=== PATIENT | female | born 1990 | race Caucasian/White ===

== ENCOUNTER 2018-09-24 15:18 | Emergency (ER) | payer OTHER ==
[2018-09-24 15:59] VITALS: BP 136/71
--- NOTE | 2018-09-24 16:14 | ED ---
Throat Pain/Nasal Congestion - HPI Summary HPI Summary: 28 yr old female with two weeks of waxing and waning sinus symptoms of congestion, post nasal drip, cough, ear pressure. Worsening symptoms over the past two days. No fever or chills. No SOB. - History of Current Complaint Chief Complaint: UCGeneralIllness Time Seen by Provider: 09/24/18 16:04 - Allergies/Home Medications Allergies/Adverse Reactions: Allergies Allergy/AdvReac Type Severity Reaction Status Date / Time Penicillins AdvReac Intermediate Itching Verified 09/24/18 16:00 contrast dye AdvReac Headache Uncoded 09/24/18 16:00 Home Medications: Home Medications Cholecalciferol CAP/TAB(NF) [Vitamin D3 CAP/TAB (NF)] 5,000 unit PO DAILY [History Confirmed 09/24/18] FLUoxetine* [PROzac*] 20 mg PO DAILY 09/24/18 [History Confirmed 09/24/18] Levothyroxine TAB* [Synthroid TAB*] 175 mcg PO 0600 09/24/18 [History Confirmed 09/24/18] PMH/Surg Hx/FS Hx/Imm Hx Respiratory History: Reports: Hx Asthma - Cancer History Cancer Type, Location and Year: Thyroid CA - Surgical History Surgery Procedure, Year, and Place: Thyroidectomy Infectious Disease History: No Infectious Disease History: Denies: Traveled Outside the [place] in Last 30 Days - Social History Alcohol Use: Rare Substance Use Type: Reports: None Smoking Status (MU): Never Smoked Tobacco Review of Systems Constitutional: Negative Positive: Nasal Discharge, Other - sinus pressure All Other Systems Reviewed And Are Negative: Yes Physical Exam Triage Information Reviewed: Yes Vital Signs On Initial Exam: Initial Vitals Temp Pulse Resp BP Pulse Ox 97.5 F 97 18 136/71 99 09/24/18 15:53 09/24/18 15:53 09/24/18 15:53 09/24/18 15:53 09/24/18 15:53 Vital Signs Reviewed: Yes Appearance: Positive: Well-Appearing, No Pain Distress Skin: Positive: Warm, Skin Color Reflects Adequate Perfusion Head/Face: Positive: Normal Head/Face Inspection Eyes: Positive: EOMI ENT: Positive: Pharynx normal, Nasal congestion, Nasal drainage, TM red - right with retracted ear drum, Sinus tenderness - bilateral frontal. Negative: Muffled voice, Hoarse voice Neck: Positive: Nontender Respiratory/Lung Sounds: Positive: Clear to Auscultation, Breath Sounds Present Cardiovascular: Positive: RRR. Negative: Murmur Abdomen Description: Negative: Distended Musculoskeletal: Positive: Strength/ROM Intact Neurological: Positive: Sensory/Motor Intact, Alert, Oriented to Person Place, Time, CN Intact II-III Psychiatric: Positive: Normal - [place] Coma Scale Best Eye Response: 4 - Spontaneous Best Motor Response: 6 - Obeys Commands Best Verbal Response: 5 - Oriented Coma Scale Total: 15 Diagnostics - Vital Signs Vital Signs Temp Pulse Resp BP Pulse Ox 09/24/18 15:53 97.5 F 97 18 136/71 99 - Laboratory Lab Statement: Any lab studies that have been ordered have been reviewed, and results considered in the medical decision making process. EENT Course/Dx - Course Course Of Treatment: 28 yr old with sinusitis, and right OM. Rx Biaxin. - Diagnoses Provider Diagnoses: Sinusitis, Otitis media Discharge - Sign-Out/Discharge Documenting (check all that apply): Patient Departure All imaging exams completed and their final reports reviewed: No Studies - Discharge Plan Condition: Good Disposition: HOME Prescriptions: Clarithromycin TAB* [Biaxin 500 MG TAB*] 500 mg PO BID #20 tab Patient Education Materials: Sinusitis (ED), Ear Infection (ED) Referrals: Gwendolyn Schmidt [Primary Care Provider] - 2 Days - Billing Disposition and Condition Condition: GOOD Disposition: Home
== END 2018-09-24 16:18 | disposition home or self-care (01) ==
LOC: UCCORT 15:18
DX: J01.90 Acute sinusitis, unspecified (principal); H66.91 Otitis media, unspecified, right ear; Z88.0 Allergy status to penicillin; Z91.02 Food additives allergy status
CPT/HCPCS: 99212; G0463

== ENCOUNTER 2018-10-24 12:44 | Emergency (ER) | payer OTHER ==
[2018-10-24 13:17] VITALS: BP 124/92
--- NOTE | 2018-10-24 13:49 | ED ---
Back Pain - HPI Summary HPI Summary: 28 yr old female with the complaint of low back pain that radiates into her buttock area, and also associated with feeling like her left leg is dragging and alteration in feeling of sensation in both thighs. Denies bowel or bladder incontinence. She has a history of thyroid cancer/ thyroid removal. She has not had any urinary symptoms at all, though has had UTI without any symptoms. Pain in her back is worse than prior episodes of back pain which she has experienced since having a tailbone fracture as a child. - History of Current Complaint Chief Complaint: UCBackPain Stated Complaint: BACK PAIN Time Seen by Provider: 10/24/18 13:30 Hx Last Menstrual Period: depoprovera Pain Intensity: 9 - Allergies/Home Medications Allergies/Adverse Reactions: Allergies Allergy/AdvReac Type Severity Reaction Status Date / Time Penicillins AdvReac Intermediate Itching Verified 10/24/18 13:17 contrast dye AdvReac Headache Uncoded 10/24/18 13:17 Home Medications: Home Medications FLUoxetine CAP* [PROzac CAP*] 20 mg PO DAILY 10/24/18 [History Confirmed ] PMH/Surg Hx/FS Hx/Imm Hx Respiratory History: Reports: Hx Asthma - Cancer History Cancer Type, Location and Year: Thyroid CA - Surgical History Surgery Procedure, Year, and Place: Thyroidectomy Infectious Disease History: No Infectious Disease History: Denies: Traveled Outside the [place] in Last 30 Days - Family History Family History: cancer - Social History Alcohol Use: Rare Substance Use Type: Reports: None Smoking Status (MU): Never Smoked Tobacco Review of Systems Constitutional: Negative Positive: Other - back pain Positive: Weakness - left leg drag, and feeling of altered sensation in the thighs. All Other Systems Reviewed And Are Negative: Yes Physical Exam Triage Information Reviewed: Yes Vital Signs On Initial Exam: Initial Vitals Temp Pulse Resp BP Pulse Ox 98.1 F 87 18 124/92 99 10/24/18 13:14 10/24/18 13:14 10/24/18 13:14 10/24/18 13:14 10/24/18 13:14 Vital Signs Reviewed: Yes Appearance: Positive: Obese Skin: Positive: Warm Head/Face: Positive: Normal Head/Face Inspection Eyes: Positive: EOMI ENT: Positive: Pharynx normal, TMs normal Neck: Positive: Nontender Respiratory/Lung Sounds: Positive: Clear to Auscultation, Breath Sounds Present Cardiovascular: Positive: RRR. Negative: Murmur Abdomen Description: Positive: Nontender Musculoskeletal: Positive: Strength/ROM Intact Neurological: Positive: Sensory/Motor Intact - exam lower extremity limited due to increased pain on attempting to lift the left thigh or extend at the left knee., Alert, Oriented to Person Place, Time, CN Intact II-III Psychiatric: Positive: Normal - [place] Coma Scale Best Eye Response: 4 - Spontaneous Best Motor Response: 6 - Obeys Commands Best Verbal Response: 5 - Oriented Coma Scale Total: 15 Diagnostics - Vital Signs Vital Signs Temp Pulse Resp BP Pulse Ox 10/24/18 13:14 98.1 F 87 18 124/92 99 - Laboratory Lab Statement: Any lab studies that have been ordered have been reviewed, and results considered in the medical decision making process. Back Pain Course/Dx - Course Course Of Treatment: 28 yr old female with low back pain and complaint of left leg feels weak. Urine dip on her menses, and she is not symptomatic so will not treat at this time. She will go to the ER for further work up given her cancer history and history of renal failure this past year. She does not want an ambulance. She feels she can walk fine and have her mom drive her. - Diagnoses Provider Diagnoses: Back pain Discharge - Sign-Out/Discharge Documenting (check all that apply): Patient Departure All imaging exams completed and their final reports reviewed: No Studies - Discharge Plan Condition: Good Disposition: HOME-RECOMMEND TO ED Patient Education Materials: Back Pain (ED) Referrals: Gwendolyn Schmidt [Primary Care Provider] - 2 Days Additional Instructions: you need to go the ER upon leaving here. Do not delay. - Billing Disposition and Condition Condition: GOOD Disposition: Home-Recommend to ED
== END 2018-10-24 14:13 | disposition home health service (06) ==
LOC: UCCORT 12:44
DX: M54.5 Low back pain (principal); Z85.850 Personal history of malignant neoplasm of thyroid; Z88.0 Allergy status to penicillin; Z91.041 Radiographic dye allergy status
CPT/HCPCS: 81003; 84702; 87086; 99212; G0463